=== PATIENT | male | born 1990 | race Caucasian/White ===

== ENCOUNTER 2016-12-07 14:36 | Emergency (ER) | payer OTHER ==
[~2016-12-07] VITALS: Ht 177.8 cm; Wt 63.2 kg
[2016-12-07 14:42] VITALS: BP 121/68; PULSE 61; RESP 10; O2SAT 99
--- NOTE | 2016-12-07 15:13 | ED.REPORT ---
HPI-Psychiatric Illness Date of Service Dec 07, 2016 ED Provider: Ty Martinez DO Pt is a 26 year old male with a hx of substance abuse and depression presenting to the ED complaining of depression. He states that the other day he had a "really bad manic episode" and now for the last few days he hasn't wanted to get out of bed or wanted to go to drug court which he is scheduled for. He states that he does have suicidal thoughts, but does not have any intentions of hurting himself or anyone else, and that he is really happy with his life and how he's living now. He usually takes Gillespie TID which usually keeps him relatively stable, and now he started Valtrex about a week ago and has been feeling tired and groggy since. Pt reports that he had an incident the other day with his 2 year old daughter where she was rejecting him and said "you're not my daddy." Pt sees a mental health counsellor and a substance abuse counsellor but does not have a regular psychiatrist. His Gillespie was being prescribed by the [facility] assisted but was most recently prescribed by urgent care. Nursing Notes Stated Complaint: REVIEW OF MEDS AND SI Chief Complaint: Psychiatric Complaint Nursing Notes Reviewed: Yes Allergies: Coded Allergies: No Known Allergies (Unverified Allergy, Unknown, 12/07/16) General Time Seen by MD: 15:11 Chief Complaint Depressed Hx Obtained From: Patient Arrived By: Walk-in Onset Occurred: Onset unknown Symptom Duration: Since onset Severity: Current: No pain currently Severity: Maximum: No pain Recent Healthcare: No recent doctor visit, No recent hospitalization Similar Sx Previous: Yes Risk-Psychiatric Illness Suicide Risk Stratification Suicide Risk Factors - Adult: : Previous attemptNo: Substance abuse RF Statements: Risk factors reviewed Past Medical History Past Medical History Substance abuse in recovery Depression Past Surgical History denies Smoking History Unknown if Ever Smoker Social History Drug Use: In recovery Ambulatory Status Independent Review of Systems Constitutional: Reports: Fatigue Psychiatric: Reports: Depression, Suicidal ideation, Denies: Homicidal ideation Complete sys rev & neg: except as marked. Physical Exam Initial Vital Signs Vital Signs (First) Date Time Temp Pulse Resp B/P Pulse Ox O2 Delivery O2 Flow Rate FiO2 12/07/16 14:42 37.0 61 10 121/68 99 Room Air Initial VS: Reviewed Head / Eyes: Atraumatic, Normocephalic, PERRL ENT: Mucous membranes moist, Conjunctiva normal, No scleral icterus Respiratory: Breath sounds normal, Clear to auscultation, No respiratory distress Cardiovascular: Regular rate & rhythm, Heart sounds normal, Intact distal pulses Abdomen / GI: Soft, Non-tender, No guarding, No rebound, No distention Extremities: Vascular intact, Neuro intact, No swelling, No tenderness Skin: Warm, Dry, No cyanosis General/Constitutional: Awake, Alert, No acute distress Neurologic: Oriented X3, Speech NL, No motor deficits, No sensory deficits, CN II - XII intact, Memory NL Psychiatric: Affect NL, Not suicidal, Not homicidal, No hallucinations, Cognitive function NL, Judgment/insight NL, Thought content NL Abnormal Mood/Affect: Positive: Depressed Good eye contact. Interpretation & Diagnostics Breathalyzer is 0 Lab Results Interpretation Test 12/07/16 15:29 12/07/16 15:39 Hold Urine Received (Received) Hold Ha Top Tube Received (Received) Gillespie Level 0.6mEq/L (0.5-1.5) Re-Eval/Medical Decision Med Decision/Clinical Course The patient is seen and evaluated and felt to not be of imminent risk of harm to himself or others. See social work notes as well. Patient is given outpatient resources, return and follow-up precautions given Re-Evaluation/Progress : Time of Eval: 16:41 Patient Status: Condition improved Re-Evaluation/Progress Note: Discussed plan for discharge. Pt understands and agrees with plan. Counseled Regarding: Diagnosis, Lab results, Need for follow-up, When/why to return to ED Discharge & Departure Impression: Primary Impression: Acute situational disturbance )( Condition at Discharge: No danger to self, No danger to others, No suicidal ideation, No homicidal ideation Disposition: Home Discharge Condition All VS Reviewed: Yes Condition: Improved Additional Instructions: Use the social work resources provided. Follow-up with your counselor. Return to the ER, call 911, call the crisis center, as needed if you develop recurrent thoughts of suicide, major depression, or other concerns Referrals: OTHER,PHYSICIAN Scribe Attestation Portions of this note were transcribed by Janet Figueroa. I, Dr. Martinez personally performed the history, physical exam and medical decision-making; I reviewed and confirmed the accuracy of the information in the transcribed note. Signed by: Silvio Bailey, 12/07/2016. Ty Martinez DO Dec 07, 2016 15:13 JANET FIGUEROA Dec 07, 2016 15:20
== END 2016-12-07 17:00 | disposition home or self-care (01) ==
LOC: SED 14:36
DX: F43.0 Acute stress reaction (principal); R45.851 Suicidal ideations